=== PATIENT | female | born 1995 | race Caucasian/White ===

== ENCOUNTER 2021-01-06 19:51 | Emergency (ER) | payer OTHER, MEDICAID ==
[2021-01-06 22:08] LABS: BLOOD UREA NITROGEN,BUN 17 mg/dL (7.0-18.0); CARBON DIOXIDE,CO2 27.9 mmol/L (21.0-32.0); CHLORIDE,CL 105 mmol/L (98-107); GLUCOSE RANDOM 89 mg/dL (74-106); POTASSIUM,K 5.1 mmol/L (3.5-5.1); SODIUM,NA 140 mmol/L (136-145)
--- NOTE | 2021-01-06 23:36 | CR ---
INDICATION: Cough, shortness of breath. TECHNIQUE: Chest radiograph 1 view COMPARISON: None FINDINGS: Cardiovascular and mediastinum: Heart size enlarged. Lungs and pleural spaces: Asymmetric patchy opacities in the right lower lung zone. Costophrenic sulci clear. No pleural thickening or pneumothorax. Bones and soft tissues: Thoracic spinal hardware noted. IMPRESSION: 1. Enlarged cardiac silhouette with likely faint pulmonary infiltrate in the right lower lung zone. Dictated by Robson Lea MD @ 01/06/2021 11:35:[address] Robson Lea @ Jan 06 2021 11:35PM
[2021-01-06] MEDS ORDERED: Amoxicillin/Clavulanate K 400-57 MG/5 ML Susp 100 ML Bottle GTUBE ONE (23:38)
[2021-01-06] MEDS ORDERED: Azithromycin 200 MG/5 ML Susp 15 ML Bottle PO ONE (23:43)
--- NOTE | 2021-01-06 23:59 | EDM.PDOC ---
ED HPI GENERAL MEDICAL PROBLEM - General Chief Complaint: Respiratory Problem Stated Complaint: FATIGUE, FEVER, COUGH Time Seen by Provider: 01/06/21 21:08 - History of Present Illness INITIAL COMMENTS - FREE TEXT/NARRATIVE: CHIEF COMPLAINT(S): Unable to clear her throat and has fever HISTORY OF PRESENT ILLNESS: This is a 25-year-old woman with a past medical history of spina bifida who is on 0.5 L of oxygen at baseline who comes to the emergency department with a chief complaint of unable to clear her throat and has fever. The patient's mother and father and presents. They state that she has had fevers at home and have been giving her ibuprofen for through the G- tube. They state that they are visiting from [place] and their main concern is they do not have the suction catheter to clear her throat as she normally is unable to clear her secretions. She does not have a strong cough. They states that she is not vaccinated for COVID-19 and she seems to be more fatigued. He states that she has been eating and drinking as normal. She states that they have a cough and congestion but unknown if it is productive as the patient swallows her secretions. They state that the last fever was 102.2 and they gave her Motrin. They state that this been going on for 3 days. They deny any other concerns REVIEW OF SYSTEMS: Constitutional: Positive for fever Eyes: Denies eye pain Ears, Nose, Mouth, & Throat: Denies earache or sore throat Cardiovascular: Denies chest pain, syncope, edema Respiratory: Positive for cough, congestion, inability to tolerate secretions gastrointestinal: Denies Nausea, vomiting, diarrhea, hematochezia. Genitourinary: Denies hematuria, dysuria skin:Denies a rash MSK: Denies joint pain, swelling Neurological: Denies any changes in mental status Psychiatric: denies any agitation/anxiety PAST MEDICAL HISTORY: As per history of present illness and as reviewed below otherwise noncontributory. SURGICAL HISTORY: As per history of present illness and as reviewed below otherwise noncontributory. SOCIAL HISTORY: As per history of present illness and as reviewed below otherwise noncontributory. FAMILY HISTORY: As per history of present illness and as reviewed below otherwise noncontributory. EXAMINATION OF ORGAN SYSTEMS/BODY AREAS: Constitutional: Heart rate 114, respiratory rate 21 with an oxygen saturation of 92% on 0.5 L nasal cannula. Temperature 36.1 General: Young woman who does not appear to be in acute distress Psychiatric: Appropriate mood and affect. Eyes: No scleral icterus or conjunctival erythema pupils are equal round and reactive. ENMT: Moist mucous membranes. No pharyngeal erythema there are some secretions in the posterior pharynx. There is some intermittent gurgling when she coughs. No drooling, no trismus. No stridor. Left tympanic membrane with erythema, bulging. Right tympanic membrane without any abnormality. Cardiovascular: Tachycardic but regular no gallops, murmurs, or rubs. Bilateral upper extremity pulses symmetric and intact. No peripheral edema. No JVD. Respiratory: Bilateral rhonchorous breath sounds. No increased work of breathing. These are likely upper airway sounds given the congestion. No obvious rales, rhonchi, wheezing Gastrointestinal: Soft, non-tender, non-distended. Normoactive bowel sounds Genitourinary: No suprapubic tenderness Musculoskeletal: Normal range of motion. Skin: No lesions or abrasions. Neurological: Alert, appropriate per patient's parents. Following commands MEDICAL DECISION MAKING AND COURSE IN THE ED WITH INTERPRETATION/REVIEW OF DIAGNOSTIC STUDIES: This is a 25-year-old woman with a past medical history of spina bifida with a G-tube who is noncommunicative who comes to the emergency department with concern for fever, cough, congestion and concern as they do not have their suction catheter with them. At this time the patient does have some gargling in the back of her throat but her oxygen saturation is normal. We will suction out the secretions. At this time given her tachycardia we will obtain labs including CBC, CMP, lactic acid, magnesium, chest x-ray, EKG, and COVID-19 swab. The patient is currently afebrile therefore no antipyretics are needed. Given the patient's history I do suspect the possibility of pneumonia, COVID-19 infection, viral upper respiratory infection. Laboratory: CBC is unremarkable. INR is normal. CMP reveals elevated AST at 43, ALT of 90 and alkaline phosphatase at 127. Hypoalbuminemia at 3.1. Covid is negative. hCG negative. The radiological images were viewed by myself along with reading the report from the radiologist. Chest x-ray reveals a faint opacity in the right lower lung zone with an enlarged cardiac silhouette. Otherwise no acute cardiopulmonary process. After labs and imaging I did discuss results with the mother and father at bedside. At this time I did discuss them that I would like to start her on Augmentin and azithromycin for the pneumonia and the ear infection. We did provide the patient with her first dose here in the emergency department and sent additional doses to the pharmacy. They stated that they were on their way to [place] for the next 10 to 11 days and they do not have a suction catheter I did recommend that the return to home so they can have a suction catheter to use given that she has evidence of pneumonia and fever. If she continues to have increased secretions and they are unable to remove the secretions she is likely going to have a worsening pneumonia. They did express understanding at this time and they were amenable to discharge. They are to return for any new or worsening symptoms. DISPOSITION: The patient was discharged home in stable condition. The patient will follow up with primary care physician when they return to home CONDITION: Fair PROCEDURES: None FINAL IMPRESSION(S)/DIAGNOSES: 1. Acute right lower lung community-acquired pneumonia 2. Acute left otitis media Gera Hooks M.D. - Related Data Allergies Allergy/AdvReac Type Severity Reaction Status Date / Time No Known Allergies Allergy Verified 01/06/21 20:28 Home Meds: Home Meds Amoxicillin/Potassium Clav [Amox Tr-K Clv 250-62.5/5 Susp] 875 mg PO BID #175 ml 01/06/21 [Rx] Azithromycin 250 mg PO DAILY #25 susp.recon 01/06/21 [Rx] Cholecalciferol (Vitamin D3) [Vitamin D] 2,000 unit GTUBE DAILY 01/06/21 [History] Famotidine [Pepcid] 2.5 ml GTUBE BID 01/06/21 [History] Montelukast Sodium [Singulair] 10 mg GTUBE DAILY 01/06/21 [History] Norethindrone [Aygestin] 5 mg GTUBE DAILY 01/06/21 [History] Oxybutynin 5 mg GTUBE BID 01/06/21 [History] Sulfamethoxazole/Trimethoprim [Sulfamethoxazole-Tmp Susp] 20 ml GTUBE BEDTIME 01/06/21 [History] cloBAZam [Clobazam] 6 ml GTUBE BEDTIME 01/06/21 [History] estradioL [Estradiol (Once Weekly)] 1 each TOP WEEKLY 01/06/21 [History] lamoTRIgine [Lamotrigine] 4 tab GTUBE BID 01/06/21 [History] levETIRAcetam [Keppra] 100 ml GTUBE BID 01/06/21 [History] Past Medical History Genitourinary History: Reports: Other (See Below) Other Genitourinary History: parents state patient has 1 kidney, cannot remember which one. straight cath Neurological History: Reports: Other (See Below) Other Neuro History: spinabifida. nonverbal - Infectious Disease History Infectious Disease History: Reports: None - Past Surgical History HEENT Surgical History: Reports: Adenoidectomy, Myringotomy w Tube(s), Tonsillectomy Neurological Surgical History: Reports: Other (See Below) Other Neurological Surgeries/Procedures: shunt Social & Family History - Family History Family Medical History: No Pertinent Family History - Tobacco Use Tobacco Use Status *Q: Never Tobacco User - Caffeine Use Caffeine Use: Reports: None - Recreational Drug Use Recreational Drug Use: No ED ROS GENERAL - Review of Systems Review Of Systems: See Below ED EXAM, GENERAL - Physical Exam Exam: See Below Course - Vital Signs Last Recorded V/S: Last Vital Signs Temp 36.1 C 01/06/21 20:36 Pulse 106 H 01/07/21 00:44 Resp 20 01/07/21 00:44 BP Pulse Ox 92 L 01/07/21 00:44 - Orders/Labs/Meds Labs: Laboratory Tests 01/06/21 01/06/21 01/06/21 Range/Units 21:20 21:30 21:30 WBC 10.36 (4.0-11.0) K/uL RBC 4.66 (4.30-5.90) M/uL Hgb 13.2 (12.0-16.0) g/dL Hct 42.2 (36.0-46.0) % MCV 90.6 (80.0-98.0) fL MCH 28.3 (27.0-32.0) pg MCHC 31.3 (31.0-37.0) g/dL RDW Std Deviation 44.5 (28.0-62.0) fl RDW Coeff of Leslie 14 (11.0-15.0) % Plt Count 241 (150-400) K/uL MPV 10.70 (7.40-12.00) fL Neut % (Auto) 73.9 (48.0-80.0) % Lymph % (Auto) 13.6 L (16.0-40.0) % [place] % (Auto) 11.3 (0.0-15.0) % Eos % (Auto) 0.9 (0.0-7.0) % Baso % (Auto) 0.3 (0.0-1.5) % Neut # (Auto) 7.7 H (1.4-5.7) K/uL Lymph # (Auto) 1.4 (0.6-2.4) K/uL [place] # (Auto) 1.2 H (0.0-0.8) K/uL Eos # (Auto) 0.1 (0.0-0.7) K/uL Baso # (Auto) 0.0 (0.0-0.1) K/uL Nucleated RBC % 0.0 /100WBC Nucleated RBCs # 0 K/uL INR Sodium 140 (136-145) mmol/L Potassium 5.1 (3.5-5.1) mmol/L Chloride 105 (98-107) mmol/L Carbon Dioxide 27.9 (21.0-32.0) mmol/L BUN 17 (7.0-18.0) mg/dL Creatinine 1.0 (0.6-1.0) mg/dL Est Cr Clr Drug Dosing 61.23 mL/min Estimated GFR (MDRD) > 60.0 ml/min Glucose 89 (74-106) mg/dL Lactic Acid (0.4-2.0) mmol/L Calcium 8.6 (8.5-10.1) mg/dL Magnesium 2.4 (1.8-2.4) mg/dL Total Bilirubin 0.2 (0.2-1.0) mg/dL AST 43 H (15-37) IU/L ALT 90 H (14-63) IU/L Alkaline Phosphatase 127 H (46-116) U/L Total Protein 7.5 (6.4-8.2) g/dL Albumin 3.1 L (3.4-5.0) g/dL Globulin 4.4 H (2.6-4.0) g/dL Albumin/Globulin Ratio 0.7 L (0.9-1.6) HCG, Qual (NEG) SARS-CoV-2 RNA (JAKUB) NEGATIVE (NEGATIVE) 01/06/21 01/06/21 01/06/21 Range/Units 21:30 21:30 21:30 WBC (4.0-11.0) K/uL RBC (4.30-5.90) M/uL Hgb (12.0-16.0) g/dL Hct (36.0-46.0) % MCV (80.0-98.0) fL MCH (27.0-32.0) pg MCHC (31.0-37.0) g/dL RDW Std Deviation (28.0-62.0) fl RDW Coeff of Leslie (11.0-15.0) % Plt Count (150-400) K/uL MPV (7.40-12.00) fL Neut % (Auto) (48.0-80.0) % Lymph % (Auto) (16.0-40.0) % [place] % (Auto) (0.0-15.0) % Eos % (Auto) (0.0-7.0) % Baso % (Auto) (0.0-1.5) % Neut # (Auto) (1.4-5.7) K/uL Lymph # (Auto) (0.6-2.4) K/uL [place] # (Auto) (0.0-0.8) K/uL Eos # (Auto) (0.0-0.7) K/uL Baso # (Auto) (0.0-0.1) K/uL Nucleated RBC % /100WBC Nucleated RBCs # K/uL INR 1.13 Sodium (136-145) mmol/L Potassium (3.5-5.1) mmol/L Chloride (98-107) mmol/L Carbon Dioxide (21.0-32.0) mmol/L BUN (7.0-18.0) mg/dL Creatinine (0.6-1.0) mg/dL Est Cr Clr Drug Dosing mL/min Estimated GFR (MDRD) ml/min Glucose (74-106) mg/dL Lactic Acid 1.2 (0.4-2.0) mmol/L Calcium (8.5-10.1) mg/dL Magnesium (1.8-2.4) mg/dL Total Bilirubin (0.2-1.0) mg/dL AST (15-37) IU/L ALT (14-63) IU/L Alkaline Phosphatase (46-116) U/L Total Protein (6.4-8.2) g/dL Albumin (3.4-5.0) g/dL Globulin (2.6-4.0) g/dL Albumin/Globulin Ratio (0.9-1.6) HCG, Qual NEGATIVE (NEG) SARS-CoV-2 RNA (JAKUB) (NEGATIVE) Meds: Medications Discontinued Medications Generic Name Dose Route Start Last Admin Trade Name Freq PRN Reason Stop Dose Admin Amoxicillin/Clavulanate Potassium 875 mg 01/06/21 23:38 01/07/21 00:37 Amoxicillin/Clavulanate K 400-57 Mg/5 Ml Susp 100 Ml Bottle GTUBE 01/06/21 23:39 875 mg ONETIME ONE Administration Azithromycin 500 mg 01/06/21 23:43 01/07/21 00:36 Azithromycin 200 Mg/5 Ml Susp 15 Ml Bottle PO 01/06/21 23:44 500 mg ONETIME ONE Administration Departure - Departure Time of Disposition: 23:59 Disposition: Home, Self-Care 01 Condition: Fair Clinical Impression: Pneumonia, Otitis media - Discharge Information Prescriptions: Amoxicillin/Potassium Clav [Amox Tr-K Clv 250-62.5/5 Susp] 875 mg PO BID #175 ml Azithromycin 250 mg PO DAILY #25 susp.recon Instructions: Otitis Media, Adult, [id number], Community-Acquired Pneumonia, Adult, [id number] Referrals: PCP,Not In Area [Primary Care Provider] - Forms: ED Department Discharge Additional Instructions: You were evaluated today on an emergent basis. At this time it does appear that your daughter's oxygen level is at her normal level. The labs did not show any increased white count to suggest a severe infection. Otherwise all of her labs were normal. She was Covid negative. The chest x-ray did show a right lower lobe pneumonia and her left ear did also appear to be infected. I do recommend antibiotics for the next 5 days. Please use Tylenol and Motrin for fever and pain. We provided your daughter the first dose of both antibiotics for today 01/07/21 This evening please provide her with the amoxicillin clavulanic acid and then starting on 01/08/2021 please give her this everyday until you complete the 5 day course: AM: Amoxicillin/clavulanic acid & Azithromycin PM: Amoxicillin/clavulanic acid Please return to the emergency department if you are having to increase her oxygen requirement or if she does not appear to be improving. Please follow-up with your primary care physician in [place] in 3 to 5 days. The patient is informed of any results of their evaluation and diagnostic workup and all questions are answered. They are given discharge instructions and return precautions. The patient is stable for discharge. The patient states they understand and agree with the plan and that they will return if their symptoms get worse or if they have any new concerns. The following information is given to patients seen in the emergency department who are being discharged to home. This information is to outline your options for follow-up care. We provide all patients seen in our emergency department with a follow-up referral. The need for follow-up, as well as the timing and circumstances, are variable depending upon the specifics of your emergency department visit. If you don't have a primary care physician on staff, we will provide you with a referral. We always advise you to contact your personal physician following an emergency department visit to inform them of the circumstance of the visit and for follow-up with them and/or the need for any referrals to a consulting specialist. The emergency department will also refer you to a specialist when appropriate. This referral assures that you have the opportunity for follow-up care with a specialist. All of these measure are taken in an effort to provide you with optimal care, which includes your follow-up. Under all circumstances we always encourage you to contact your private physician who remains a resource for coordinating your care. When calling for follow-up care, please make the office aware that this follow-up is from your recent emergency room visit. If for any reason you are refused follow-up, please contact the [facility] Emergency Department at and asked to speak to the emergency department charge nurse. Sepsis Event Note (ED) - Evaluation Sepsis Screening Result: Possible Sepsis Risk
--- NOTE | 2021-01-07 01:36 | PCM.EKG ---
#1 Interpretation EKG Date: 01/06/21 Time: 21:36 Rhythm: NSR Rate (Beats/Min): 112 [place]: Normal P-Wave: Present QRS: Normal ST-T: Normal (T wave inversion III, V3) QT: Normal Comparison: NA - No Prior EKG EKG Interpretation Comments: Sinus Tachycardia
== END 2021-01-07 00:45 | disposition home or self-care (01) ==
LOC: MW.ED 19:51
DX: J18.9 Pneumonia, unspecified organism (principal); H66.92 Otitis media, unspecified, left ear; Z20.822 Contact with and (suspected) exposure to COVID-19
CPT/HCPCS: 36415; 71045; 71045-26; 80053; 83605; 83735; 84703; 85025; 85610; 93005; 93010; 99284; 99284-25; U0002